=== PATIENT | female | born 1945 | race Caucasian/White ===

== ENCOUNTER 2018-05-08 10:24 | Emergency (ER) | END 2018-05-08 14:20 | disposition home or self-care (01) ==

== ENCOUNTER 2018-05-25 16:22 | Emergency (ER) | END 2018-05-25 19:30 | disposition home or self-care (01) ==

== ENCOUNTER 2018-06-15 22:46 | Inpatient (IN) | END 2018-06-19 11:45 | disposition home or self-care (01) | DRG 310 ==

== ENCOUNTER 2018-07-01 19:55 | Inpatient (IN) | END 2018-07-04 19:27 | disposition home or self-care (01) | DRG 309 ==

== ENCOUNTER 2018-07-05 14:39 | Emergency (ER) | END 2018-07-05 19:36 | disposition home or self-care (01) ==

== ENCOUNTER 2018-08-16 18:52 | Emergency (ER) | END 2018-08-16 22:10 | disposition home or self-care (01) ==

== ENCOUNTER 2018-08-24 21:09 | Emergency (ER) | END 2018-08-24 22:23 | disposition home or self-care (01) ==

== ENCOUNTER 2018-09-11 19:42 | Emergency (ER) | END 2018-09-11 22:00 | disposition home or self-care (01) ==

== ENCOUNTER 2018-09-26 19:55 | Emergency (ER) | payer MEDICARE, OTHER ==
[~2018-09-26] VITALS: Ht 175.3 cm; Wt 88.0 kg
[~2018-09-26 19:55] MED LIST: APIX5TAB PO; BENZ-6 PO; DILT120C77 PO; FLEC100T PO; TRAM50TA2 PO
[2018-09-26 19:57] VITALS: Ht 175.3 cm; Wt 88.0 kg
[2018-09-26] MEDS ORDERED: IPRATROPIUM (NEB) 0.5 MG/2.5 ML AMP HHN ONE (20:30)
[2018-09-26] MEDS ORDERED: LEVALBUTEROL (NEB) 1.25 MG/0.5 ML AMP HHN ONE (20:30)
[2018-09-26] MEDS ORDERED: BENZ-6 PO (22:08)
[2018-09-26] MEDS ORDERED: DOXY100T20 PO (22:08)
[2018-09-26] MEDS ORDERED: PROM6.2515 PO (22:08)
[2018-09-26 22:25] VITALS: BP 165/79; PULSE 75; RESP 20
--- NOTE | 2018-09-26 23:38 | ERD ---
ER Documentation Chief Complaint Chief Complaint cough/congestion/runny nose x 1 day. mild wheezing noted (JONAH DAVIS PA-C) HPI 9-year-old female presenting with cough and congestion with runny nose times 1 day. She is never had asthma before. She feels that she has a wheezy type cough. She has had no fevers. Has a mild sore throat. Has had no medication for symptoms. She states she has a coughing fit an hour ago. Denies medical problems. Denies chest pain or shortness of breath. Medical history is A. fib. Surgical history denies. Social history denies (JONAH DAVIS PA-C) ROS All systems reviewed and are negative except as per history of present illness. (JONAH DAVIS PA-C) Medications Home Meds Active Scripts Benzonatate* (Tessalon Perle*) 100 Mg Capsule, 100 MG PO Q8H PRN for COUGH, #30 CAP Prov:JONAH DAVIS PA-C 09/26/18 Doxycycline Hyclate* (Doxycycline Hyclate*) 100 Mg Tablet.dr, 100 MG PO BID for 10 Days, TAB Prov:JONAH DAVIS PA-C 09/26/18 Promethazine Hcl* (Promethazine Hcl* Syrup) 6.25 Mg/5 Ml Syrup, 6.25 MG PO Q6H PRN for COUGH, #100 ML Prov:JONAH DAVIS PA-C 09/26/18 Tramadol HCl (Tramadol HCl) 50 Mg Tablet, 50 MG PO Q4 PRN for PAIN, #20 TAB Prov:JONAH DAVIS PA-C 08/24/18 Benzonatate* (Tessalon Perle*) 100 Mg Capsule, 100 MG PO Q8H PRN for COUGH, #30 CAP Prov:ELZBIETA OLIVAS MD 08/16/18 Flecainide Acetate* (Flecainide Acetate*) 100 Mg Tablet, 150 MG PO BID for 14 Days, #30 TAB Prov:NAV POWELL MD 07/04/18 Diltiazem Hcl* (Cardizem CD*) 120 Mg Cap.sr.24h, 120 MG PO BID for 14 Days, #30 Prov:NAV POWELL MD 07/04/18 Apixaban* (Eliquis*) 5 Mg Tablet, 5 MG PO BID for 30 Days, #30 TAB 1 Refill Prov:NAV POWELL MD 07/04/18 Allergies Allergies: Coded Allergies: acetaminophen (Verified Adverse Reaction, Severe, severe headache, dizziness, 07/05/18) metoprolol (Verified Adverse Reaction, Severe, tingling, dizziness, confusion, 07/05/18) atenolol (Verified Adverse Reaction, Intermediate, headache, dizziness, 07/05/18) PMhx/Soc History of Surgery: Yes (Hysterectomy) Anesthesia Reaction: No Hx Neurological Disorder: No Hx Respiratory Disorders: No Hx Cardiac Disorders: Yes (AFib) Hx Psychiatric Problems: Yes (Clinical Depression) Hx Miscellaneous Medical Probl: No Hx Alcohol Use: No Hx Substance Use: No Hx Tobacco Use: Yes Smoking Status: Current every day smoker (JONAH DAVIS PA-C) FmHx Family History: No diabetes, No coronary disease, No other (JONAH DAVIS PA-C) Physical Exam Vitals Vital Signs Date Temp Pulse Resp B/P (MAP) Pulse Ox O2 O2 Flow FiO2 Time Delivery Rate 09/26/18 98.0 75 20 165/79 95 Room Air 22:25 (107) 09/26/18 82 18 92 21 20:35 09/26/18 97.5 92 18 135/65 93 19:57 (88) (KEZIA ORELLANA DO) Physical Exam GENERAL: The patient is well-appearing, well-nourished, in no acute distress HEENT: Atraumatic. Conjunctivae are pink. Pupils equal, round, and reactive to light. There is no scleral icterus. Tympanic membranes clear bilaterally. Oropharynx clear. NECK: C-spine is soft and supple. There is no meningismus. There is no cervical lymphadenopathy. CHEST: Clear to auscultation bilaterally. There are no rales, wheezes or rhonchi. HEART: Regular rate and rhythm. No murmurs, clicks, rubs or gallops. No S3 or S4. (JONAH DAVIS PA-C) Results 24 hrs Current Medications Medications Dose Sig/Wilma Start Time Status Last (Trade) Ordered Route PRN Stop Time Admin Dose Reason Admin Ipratropium 0.5 mg ONCE ONCE 09/26/18 DC 09/26/18 [place] [facility] 20:30 20:34 (Atrovent 09/26/18 0.02% 20:32 (Neb)) 1.25 mg ONCE ONCE 09/26/18 DC 09/26/18 Levalbuterol HHN 20:30 20:34 (Xopenex 09/26/18 Neb) 20:32 (KEZIA ORELLANA DO) Procedures/MDM ER Course: Xopenex and albuterol breathing treatment given ED. Patient was resting comfortably after breathing treatment. MDM: 72-year-old female presenting with cough. Patient's x-ray shows concern for pneumonia and given patient's age and will treat with antibiotics. I have low suspicion for respiratory distress or hypoxia. I have low suspicion for sepsis. Patient is discharged stricter precautions and told to follow-up with primary care within 1-2 days for close evaluation. Patient is told if symptoms change or worsen to immediately return to the ER. All questions answered discharge (JONAH DAVIS PA-C) age correction at HPI: 72 year old female (KEZIA ORELLANA DO) Departure Diagnosis: Primary Impression: Cough Condition: Stable Patient Instructions: Cough, Chronic, Uncertain Cause, (Adult) Referrals: [facility] YOU HAVE RECEIVED A MEDICAL SCREENING EXAM AND THE RESULTS INDICATE THAT YOU DO NOT HAVE A CONDITION THAT REQUIRES URGENT TREATMENT IN THE EMERGENCY DEPARTMENT. FURTHER EVALUATION AND TREATMENT OF YOUR CONDITION CAN WAIT UNTIL YOU ARE SEEN IN YOUR DOCTORS OFFICE WITHIN THE NEXT 1-2 DAYS. IT IS YOUR RESPONSIBILITY TO MAKE AN APPOINTMENT FOR FOLOW-UP CARE. IF YOU HAVE A PRIMARY DOCTOR --you should call your primary doctor and schedule an appointment IF YOU DO NOT HAVE A PRIMARY DOCTOR YOU CAN CALL OUR PHYSICIAN REFERRAL HOTLINE AT IF YOU CAN NOT AFFORD TO SEE A PHYSICIAN YOU CAN CHOSE FROM THE FOLLOWING [facility] [address]. [facility] [address] [facility] [address] [facility] [address] [facility]. [facility] [address] [facility]. [facility] [address] Additional Instructions: FOLLOW UP WITH YOUR PRIMARY CARE PHYSICIAN TOMORROW.Return to this facility if you are not improving as expected. JONAH DAVIS PA-C Sep 26, 2018 23:38 KEZIA ORELLANA DO Sep 29, 2018 16:06
== END 2018-09-26 22:26 | disposition home or self-care (01) ==
LOC: FTE 19:55
DX: R05 Cough (principal); F17.210 Nicotine dependence, cigarettes, uncomplicated
CPT/HCPCS: 71045; 94664

== ENCOUNTER 2018-09-27 13:56 | Emergency (ER) | payer MEDICARE, OTHER ==
[~2018-09-27] VITALS: Ht 165.1 cm; Wt 85.9 kg
[~2018-09-27 13:56] MED LIST changes: +DOXY100T20 PO; +PROM6.2515 PO
[2018-09-27 14:04] VITALS: Ht 165.1 cm; Wt 85.9 kg
[2018-09-27] MEDS ORDERED: SOD CHLORIDE 0.9% 1,000 ML IV STA (14:47)
--- NOTE | 2018-09-27 14:49 | ERD ---
ER Documentation Chief Complaint Chief Complaint dizziness s/p phenergan use; feels palpitations; denies CP HPI 72-year-old woman complains of feeling weak and dizzy after using promethazine last night for cough. She was diagnosed with early pneumonia yesterday and prescribed antibiotics which she states she has been using. She states her cough has improved and she has no complaints of chest pain or shortness of breath but after using promethazine felt very weak and dizzy. She denies calf or leg swelling, no fevers or chills, no vomiting or diarrhea. Patient also has a history of atrial fibrillation and felt palpitations this morning. ROS All systems reviewed and are negative except as per history of present illness. Medications Home Meds Active Scripts Benzonatate* (Tessalon Perle*) 100 Mg Capsule, 100 MG PO Q8H PRN for COUGH, #30 CAP Prov:JONAH DAVIS PA-C 09/26/18 Doxycycline Hyclate* (Doxycycline Hyclate*) 100 Mg Tablet.dr, 100 MG PO BID for 10 Days, TAB Prov:JONAH DAVIS PA-C 09/26/18 Promethazine Hcl* (Promethazine Hcl* Syrup) 6.25 Mg/5 Ml Syrup, 6.25 MG PO Q6H PRN for COUGH, #100 ML Prov:JONAH DAVIS PA-C 09/26/18 Tramadol HCl (Tramadol HCl) 50 Mg Tablet, 50 MG PO Q4 PRN for PAIN, #20 TAB Prov:JONAH DAVIS PA-C 08/24/18 Benzonatate* (Tessalon Perle*) 100 Mg Capsule, 100 MG PO Q8H PRN for COUGH, #30 CAP Prov:ELZBIETA OLIVAS MD 08/16/18 Flecainide Acetate* (Flecainide Acetate*) 100 Mg Tablet, 150 MG PO BID for 14 Days, #30 TAB Prov:NAV POWELL MD 07/04/18 Diltiazem Hcl* (Cardizem CD*) 120 Mg Cap.sr.24h, 120 MG PO BID for 14 Days, #30 Prov:NAV POWELL MD 07/04/18 Apixaban* (Eliquis*) 5 Mg Tablet, 5 MG PO BID for 30 Days, #30 TAB 1 Refill Prov:NAV POWELL MD 07/04/18 Allergies Allergies: Coded Allergies: acetaminophen (Verified Adverse Reaction, Severe, severe headache, dizziness, 07/05/18) metoprolol (Verified Adverse Reaction, Severe, tingling, dizziness, confusion, 07/05/18) atenolol (Verified Adverse Reaction, Intermediate, headache, dizziness, 07/05/18) PMhx/Soc Hypertension, paroxysmal atrial fibrillation History of Surgery: Yes (Hysterectomy) Anesthesia Reaction: No Hx Neurological Disorder: No Hx Respiratory Disorders: No Hx Cardiac Disorders: Yes (AFib) Hx Psychiatric Problems: Yes (Clinical Depression) Hx Miscellaneous Medical Probl: No Hx Alcohol Use: No Hx Substance Use: No Hx Tobacco Use: Yes FmHx Family History: No diabetes Physical Exam Vitals Vital Signs Date Temp Pulse Resp B/P (MAP) Pulse Ox O2 O2 Flow FiO2 Time Delivery Rate 09/27/18 114 20 131/81 98 Room Air 15:35 (98) 09/27/18 97.6 115 20 145/94 100 14:04 (111) Physical Exam GENERAL: Well-developed, well-nourished, appears dehydrated, afebrile HEENT: Dry mucous membranes, pink conjunctiva, no cervical spine tenderness or step-off deformities, no goiter, no jaundice or icterus, extraocular movements intact without pain. NEURO: Alert and oriented 3, cranial nerves II through XII intact bilaterally, pupils equal round reactive to light, no focal deficits or facial asymmetry, sensation intact distally Strength 5/5 in upper and lower extremities bilaterally CARDIAC: Tachycardic and regular, no murmurs rubs or gallops LUNGS: Clear bilaterally no wheezing crackles or stridor ABDOMEN: Soft nontender, no guarding, no rigidity, no rebound, no psoas sign no obturator sign. SKIN: Warm and dry to touch, no abrasions, contusions, or hematomas, no lacerations, no ecchymosis, no target lesions, and without ulcers EXTREMITIES: No clubbing cyanosis or edema, calves are bilaterally symmetrical, no Homans sign, no popliteal cord sign. Distal pulses equal and bilateral PSYCH: Normal affect without agitation or irritability Result Diagram: 09/27/18 1552 09/27/18 1552 Results 24 hrs Laboratory Tests Test 09/27/18 15:52 White Blood Count 8.5 10^3/ul Red Blood Count 5.35 10^6/ul Hemoglobin 15.5 g/dl Hematocrit 47.0 % Mean Corpuscular Volume 87.9 fl Mean Corpuscular Hemoglobin 29.0 pg Mean Corpuscular Hemoglobin Concent 33.0 g/dl Red Cell Distribution Width 13.0 % Platelet Count 335 10^3/UL Mean Platelet Volume 10.2 fl Immature Granulocytes % 0.200 % Neutrophils % 69.7 % Lymphocytes % 22.0 % Monocytes % 6.6 % Eosinophils % 0.9 % Basophils % 0.6 % Nucleated Red Blood Cells % 0.0 /100WBC Immature Granulocytes # 0.020 10^3/ul Neutrophils # 5.9 10^3/ul Lymphocytes # 1.9 10^3/ul Monocytes # 0.6 10^3/ul Eosinophils # 0.1 10^3/ul Basophils # 0.1 10^3/ul Nucleated Red Blood Cells # 0.0 10^3/ul Sodium Level 143 mmol/L Potassium Level 3.8 mmol/L Chloride Level 110 mmol/L Carbon Dioxide Level 25 mmol/L Anion Gap 8 Blood Urea Nitrogen 16 mg/dl Creatinine 0.63 mg/dl Est Glomerular Filtrat Rate mL/min > 60 mL/min Glucose Level 109 mg/dl Calcium Level 10.5 mg/dl Total Bilirubin 0.1 mg/dl Direct Bilirubin 0.00 mg/dl Indirect Bilirubin 0.1 mg/dl Aspartate Amino Transf (AST/SGOT) 21 IU/L Alanine Aminotransferase (ALT/SGPT) 25 IU/L Alkaline Phosphatase 100 IU/L Troponin I < 0.012 ng/ml Total Protein 6.4 g/dl Albumin 3.6 g/dl Globulin 2.80 g/dl Albumin/Globulin Ratio 1.28 Lipase 25 U/L Current Medications Medications Dose Sig/Wilma Start Time Status Last (Trade) Ordered Route PRN Stop Time Admin Dose Reason Admin Magnesium 100 ml @ ONCE ONCE 09/27/18 DC 09/27/18 Sulfate/ 100 mls/hr IVPB 15:00 15:33 Dextrose 09/27/18 15:59 Sodium 1,000 ml @ Q1H STAT 09/27/18 DC 09/27/18 Chloride 1,000 mls/hr IV 14:47 15:33 09/27/18 15:46 Procedures/MDM IV line was established patient was placed on athletic monitor rhythm strip revealed a narrow complex tachycardia at 130 bpm with upright P and T waves. Patient was afebrile EKG performed, read by me revealed an atrial fibrillation with rapid ventricular rate at 128 bpm, normal axis, narrow QRS complex, prolonged QT of 511 ms, no concerning ST elevations or depressions noted I administered 1 L normal saline IV for dehydration and magnesium 1 g IV x1. CBC was normal, electrolytes revealed dehydration with a BUN/creatinine of 16/0.6, liver function tests normal, troponin negative Patient's tachycardia resolved and she was rehydrated. She is tolerating p.o. and has no complaints of shortness of breath or chest pain. Her dizziness and weakness has improved. I suspect she had an adverse reaction due to promethazine which is known to cause dizziness, drowsiness, sedation. Her pulse is 84 bpm and regular at this time I suspect it is in normal sinus rhythm, but more importantly her tachycardia has resolved and she has been rehydrated. 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 As well as abscess, cellulitis, fractures, and dislocations. Patient feels much better at this time, and vital signs are normal, symptoms h ave improved. I did give strict instructions to return to the ED if symptoms continue or worsen, patient will otherwise follow-up with primary care physician. Patient understood instructions and agreed to plan. Disclaimer: Inadvertent spelling and grammatical errors are likely due to EHR/dictation software use and do not reflect on the overall quality of patient care. Also, please note that the electronic time recorded on this note does not necessarily reflect the actual time of the patient encounter. Departure Diagnosis: Primary Impression: Dehydration Additional Impressions: Promethazine adverse reaction Encounter type: initial encounter Qualified Codes: T43.3X5A - Adverse effect of phenothiazine antipsychotics and neuroleptics, initial encounter Paroxysmal atrial fibrillation Condition: Good ИРИНА GUNDERSON MD Sep 27, 2018 14:49
[2018-09-27] MEDS ORDERED: MAGNESIUM SULFATE 1 GM/D5W 100 ML IVPB ONE (15:00)
[2018-09-27 18:33] VITALS: BP 122/84; PULSE 79; RESP 18
== END 2018-09-27 18:34 | disposition home or self-care (01) ==
LOC: E/R 13:56
DX: E86.0 Dehydration (principal); T43.3X5A Adverse effect of phenothiazine antipsychotics and neuroleptics, initial encounter; I48.0 Paroxysmal atrial fibrillation; I10 Essential (primary) hypertension; Z87.891 Personal history of nicotine dependence
CPT/HCPCS: 36415; 80053; 83690; 84484; 85025; 93005; 96374; 99284; J3475; J7030

== ENCOUNTER 2018-09-29 15:07 | Emergency (ER) | payer MEDICARE, OTHER ==
[~2018-09-29] VITALS: Ht 170.2 cm; Wt 89.0 kg
[2018-09-29 15:15] VITALS: Ht 170.2 cm; Wt 89.0 kg
--- NOTE | 2018-09-29 15:38 | ERD ---
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 fib presenting with complaints of palpitations and mid chest pressure today. She has been here several times this past week for similar symptoms. Patient recently started promethazine for her cough and doxycycline for recently diagnosed pneumonia. She feels her symptoms got worse after started promethazine but she has not taken this medication today. She denies any associated shortness of breath or dizziness. She just feels generally unwell which is normally what happens when she is in A. fib. She is taking her flecainide and diltiazem as prescribed. She is also on a blood thinner. She is trying to stay well-hydrated. She denies any recent fevers or chills. No other recent illnesses. ROS All systems reviewed and are negative except as per history of present illness. Medications Home Meds Reported Medications Diltiazem Hcl* (Cardizem CD*) 120 Mg Cap.sr.24h, 120 MG PO BID, #30 CAP 09/29/18 Flecainide Acetate* (Flecainide Acetate*) 50 Mg Tablet, 150 MG PO BID, TAB 09/29/18 Apixaban* (Eliquis*) 5 Mg Tablet, 5 MG PO BID, TAB 09/29/18 Discontinued Scripts Benzonatate* (Tessalon Perle*) 100 Mg Capsule, 100 MG PO Q8H PRN for COUGH, #30 CAP Prov:JONAH DAVIS PA-C 09/26/18 Doxycycline Hyclate* (Doxycycline Hyclate*) 100 Mg Tablet.dr, 100 MG PO BID for 10 Days, TAB Prov:JONAH DAVIS PA-C 09/26/18 Promethazine Hcl* (Promethazine Hcl* Syrup) 6.25 Mg/5 Ml Syrup, 6.25 MG PO Q6H PRN for COUGH, #100 ML Prov:JONAH DAVIS PA-C 09/26/18 Tramadol HCl (Tramadol HCl) 50 Mg Tablet, 50 MG PO Q4 PRN for PAIN, #20 TAB Prov:JONAH DAVIS PA-C 08/24/18 Benzonatate* (Tessalon Perle*) 100 Mg Capsule, 100 MG PO Q8H PRN for COUGH, #30 CAP Prov:ELZBIETA OLIVAS MD 08/16/18 Flecainide Acetate* (Flecainide Acetate*) 100 Mg Tablet, 150 MG PO BID for 14 Days, #30 TAB Prov:NAV POWELL MD 07/04/18 Diltiazem Hcl* (Cardizem CD*) 120 Mg Cap.sr.24h, 120 MG PO BID for 14 Days, #30 Prov:NAV POWELL MD 07/04/18 Apixaban* (Eliquis*) 5 Mg Tablet, 5 MG PO BID for 30 Days, #30 TAB 1 Refill Prov:NAV POWELL MD 07/04/18 Allergies Allergies: Coded Allergies: promethazine (Unverified Allergy, Unknown, 09/29/18) acetaminophen (Verified Adverse Reaction, Severe, severe headache, dizziness, 09/29/18) metoprolol (Verified Adverse Reaction, Severe, tingling, dizziness, confusion, 09/29/18) atenolol (Verified Adverse Reaction, Intermediate, headache, dizziness, 09/29/18) PMhx/Soc History of Surgery: Yes (Hysterectomy) Anesthesia Reaction: No Hx Neurological Disorder: No Hx Respiratory Disorders: No Hx Cardiac Disorders: Yes (AFib) Hx Psychiatric Problems: Yes (Clinical Depression) Hx Miscellaneous Medical Probl: Yes (Parathyroid adenoma, hypercalcemia) Hx Alcohol Use: No Hx Substance Use: No Hx Tobacco Use: Yes FmHx Family History: No diabetes Physical Exam Vitals Vital Signs Date Temp Pulse Resp B/P (MAP) Pulse Ox O2 O2 Flow FiO2 Time Delivery Rate 09/29/18 102 23 129/89 95 Room Air 18:35 (102) 09/29/18 98.2 113 20 130/89 95 15:15 (103) Physical Exam Const: No acute distress Head: Atraumatic Eyes: Normal Conjunctiva ENT: Normal External Ears, Nose and Mouth. Neck: Full range of motion. No meningismus. Resp: Clear to auscultation bilaterally Cardio: Irregularly irregular rhythm with tachycardia, no murmurs. 2+ distal pulses Abd: Soft, non tender, non distended. Normal bowel sounds Skin: No petechiae or rashes Back: No midline or flank tenderness Ext: No cyanosis, or edema Neur: Awake and alert, no facial asymmetry, normal speech, moving all extremities Psych: Somewhat anxious, normal Mood and Affect Result Diagram: 09/29/18 1604 09/29/18 1604 Results 24 hrs Laboratory Tests Test 09/29/18 16:04 White Blood Count 9.4 10^3/ul Red Blood Count 5.10 10^6/ul Hemoglobin 15.1 g/dl Hematocrit 45.7 % Mean Corpuscular Volume 89.6 fl Mean Corpuscular Hemoglobin 29.6 pg Mean Corpuscular Hemoglobin Concent 33.0 g/dl Red Cell Distribution Width 12.7 % Platelet Count 343 10^3/UL Mean Platelet Volume 9.9 fl Immature Granulocytes % 0.300 % Neutrophils % 73.0 % Lymphocytes % 20.4 % Monocytes % 4.4 % Eosinophils % 1.4 % Basophils % 0.5 % Nucleated Red Blood Cells % 0.0 /100WBC Immature Granulocytes # 0.030 10^3/ul Neutrophils # 6.9 10^3/ul Lymphocytes # 1.9 10^3/ul Monocytes # 0.4 10^3/ul Eosinophils # 0.1 10^3/ul Basophils # 0.1 10^3/ul Nucleated Red Blood Cells # 0.0 10^3/ul Sodium Level 143 mmol/L Potassium Level 3.9 mmol/L Chloride Level 108 mmol/L Carbon Dioxide Level 28 mmol/L Anion Gap 7 Blood Urea Nitrogen 18 mg/dl Creatinine 0.73 mg/dl Est Glomerular Filtrat Rate mL/min > 60 mL/min Glucose Level 143 mg/dl Calcium Level 10.9 mg/dl Troponin I < 0.012 ng/ml Current Medications Medications Dose Sig/Wilma Start Time Status Last (Trade) Ordered Route PRN Stop Time Admin Dose Reason Admin Diltiazem 30 mg ONCE ONCE 09/29/18 DC 09/29/18 HCl PO 17:00 09/29/18 17:03 (Cardizem) 17:01 Diltiazem 15 mg ONCE ONCE 09/29/18 DC 09/29/18 HCl IV 18:00 09/29/18 18:42 (Cardizem Iv) 18:01 Sodium 500 ml @ Q1H STAT 09/29/18 DC 09/29/18 Chloride 500 mls/hr IV 17:41 09/29/18 18:43 18:40 Procedures/MDM EMERGENT LABS AND DIAGNOSTIC STUDIES: Lab Results above were reviewed and interpreted by me. CBC: no anemia or evidence of infection BMP shows no evidence of renal failure or hypoglycemia. Elevated calcium level noted, slightly elevated compared to previous Troponin within normal limits, not indicative of cardiac ischemia 12-lead EKG was interpreted by Silvestre Stein MD: Atrial fibrillation with RVR at 113 bpm No QT prolongation Minimal lateral ST depressions No acute ST or T wave changes suggestive of STEMI. Radiology Results as interpreted by Radiology below were reviewed by Francine Stein MD: Chest x-ray: 1. Slightly improved aeration at the lung bases with remaining mild atelectasis versus infiltrates. Initial Nursing notes reviewed. Previous Medical Records requested via the Electronic Health Record. EMERGENCY DEPARTMENT COURSE / MEDICAL DECISION MAKING: Patient is presenting with A. fib with RVR. Otherwise her vitals are stable. She was treated with IV fluids and oral diltiazem as well as IV diltiazem. I do not suspect ACS or pulmonary embolism. I do not suspect severe sepsis or septic shock. Her pneumonia seems to be improving on her chest x-ray there are no signs of acute heart failure. After treatment, the patient's heart rate improved. I recommended follow-up with her primary care doctor regarding her hypercalcemia. 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 She has had multiple visits to the ER for similar symptoms. I checked and there is no interaction between flecainide and doxycycline. I do not think this is medication related. Patient feels comfortable with this discharge plan. Patient's blood pressure was elevated (>120/80) but appears stable without evidence of hypertensive emergency or urgency. The patient was counseled about the risks of hypertension and urged to pursue outpatient monitoring and therapy within a week with their primary care physician. Critical Care Time: 40 minutes Treatments/Evaluations: Close monitoring and treatment of unstable vital signs, cardiorespiratory, and neurologic status, while maintaining tight balance of fluid, respiratory, and cardiac interventions. This time includes discussing the case with the patient and the patients family. This time does not include all procedures stated elsewhere in this record. This time also includes reviewing old records, labs and radiological studies. This time includes examining and re- examining the patient. Additionally, this time also includes arranging care with admitting and consulting physicians. Departure Diagnosis: Primary Impression: Atrial fibrillation with rapid ventricular response Additional Impression: Hypercalcemia Condition: Stable EKJESSICA MAYORGA MD Sep 29, 2018 15:38
[2018-09-29] MEDS ORDERED: APIX5TAB PO (16:31)
[2018-09-29] MEDS ORDERED: FLEC50TA PO (16:32)
[2018-09-29] MEDS ORDERED: DILT120C77 PO (16:33)
[2018-09-29] MEDS ORDERED: DILTIAZEM 30 MG TAB PO ONE (17:00)
[2018-09-29] MEDS ORDERED: SOD CHLORIDE 0.9% 500 ML IV STA (17:41)
[2018-09-29] MEDS ORDERED: DILTIAZEM 25 MG INJ IV ONE (18:00)
[2018-09-29 19:41] VITALS: BP 120/72; PULSE 85; RESP 19
== END 2018-09-29 19:58 | disposition home or self-care (01) ==
LOC: E/R 15:07
DX: I48.91 Unspecified atrial fibrillation (principal); E83.52 Hypercalcemia; Z79.01 Long term (current) use of anticoagulants; Z87.891 Personal history of nicotine dependence
CPT/HCPCS: 36415; 71045; 80048; 84484; 85025; 93005; 96374; 99291; J7040

== ENCOUNTER 2018-11-11 07:15 | Inpatient (IN) | payer MEDICARE, OTHER ==
[~2018-11-11] VITALS: Ht 172.7 cm; Wt 85.0 kg
[2018-11-11] VITALS (7 sets, daily range): BP systolic 105–109; BP diastolic 60–74; PULSE 66–111; RESP 18–19; Ht 172.7 cm; Wt 85.0 kg
[~2018-11-11 07:15] MED LIST changes: -BENZ-6 PO; -DOXY100T20 PO; -FLEC100T PO; +FLEC50TA PO; -PROM6.2515 PO; -TRAM50TA2 PO
[2018-11-11] MEDS ORDERED: ASPIRIN 325 MG TAB PO STA (07:23)
[2018-11-11] MEDS ORDERED: NITROGLYCERIN (SL) 0.4 MG TAB SL PRN ×2 (07:30→12:00)
[2018-11-11] MEDS ORDERED: DILTIAZEM 25 MG INJ IV STA (07:31)
--- NOTE | 2018-11-11 07:56 | ERD ---
ER Documentation Chief Complaint Chief Complaint pressure like chest pain non radiating ; dizziness started 6 am today HPI This is a 73-year-old female with a known history of atrial fibrillation. She states is paroxysmal and is on Eliquis. She states that at 6 AM this morning hour prior to arrival she developed a sudden onset of palpitations dizziness and a mild pressure-like sensation in her chest. She stated the pressure-like sensation lasted for roughly 20 minutes and did not radiate to the neck arm back or jaw. She stated this resolved. However the palpitations persisted. Therefore she came to the emergency department to be further evaluated. She denies a headache or changes in vision. She has no recent travel or prolonged immobilization denies any shortness of breath at rest or exertion. She states she does have a history of tobacco use but recently quit 4 months prior to arrival. She states over the past several days she has had a productive cough with whitish sputum. ROS All systems reviewed and are negative except as per history of present illness. Medications Home Meds Reported Medications Diltiazem Hcl* (Cardizem CD*) 120 Mg Cap.sr.24h, 120 MG PO BID, #30 CAP 09/29/18 Flecainide Acetate* (Flecainide Acetate*) 50 Mg Tablet, 150 MG PO BID, TAB 09/29/18 Apixaban* (Eliquis*) 5 Mg Tablet, 5 MG PO BID, TAB 09/29/18 Allergies Allergies: Coded Allergies: promethazine (Unverified Allergy, Unknown, 09/29/18) acetaminophen (Verified Adverse Reaction, Severe, severe headache, dizziness, 09/29/18) metoprolol (Verified Adverse Reaction, Severe, tingling, dizziness, confusion, 09/29/18) atenolol (Verified Adverse Reaction, Intermediate, headache, dizziness, 09/29/18) PMhx/Soc History of Surgery: Yes (Hysterectomy) Anesthesia Reaction: No Hx Neurological Disorder: No Hx Respiratory Disorders: No Hx Cardiac Disorders: Yes (AFib) Hx Psychiatric Problems: Yes (Clinical Depression) Hx Miscellaneous Medical Probl: Yes (Parathyroid adenoma, hypercalcemia) Hx Alcohol Use: No Hx Substance Use: No Hx Tobacco Use: Yes (QUIT 2 MONTHS AGO) Smoking Status: Former smoker Physical Exam Vitals Vital Signs Date Temp Pulse Resp B/P (MAP) Pulse Ox O2 O2 Flow FiO2 Time Delivery Rate 11/11/18 97.7 65 24 182/113 95 07:16 (136) Physical Exam Constitutional:Well-developed. Well-nourished. HEENT:Normocephalic. Atraumatic.Pupils were equal round reactive to light. Moist mucous membranes.No tonsillar exudates. Neck: No nuchal rigidity. No lymphadenopathy. No posterior cervical spine tenderness or step-offs. Respiratory: Not using accessory muscles of respiration.Lungs were clear to auscultation bilaterally. No rhonchi. No rales. Bilateral wheezing. Cardiovascular: Tachycardic with irregular regular rhythm.No murmurs. No rubs were appreciated.S1, S2 normal. Distal pulses are palpable 2+ bilaterally. GI: Abdomen was soft. Nontender. Non Distended. No pulsatile abdominal masses or bruits. No rebound. No guarding. Bowel sounds were present and normal. Muscle skeletal: Full range of motion of both the upper and lower extremities bilaterally.Normal muscle tone.No assymetrical calf tenderness or swelling. Skin: No petechia, no purpura. No lesions on the palms or the soles of the feet. No maculopapular rash. NEURO: Patient was alert, awake, orientated x3.No facial droop. Gait observed and normal with no ataxia.Speech had regular rate and rhythm. No focal neurological deficits. Results 24 hrs Current Medications Medications Dose Sig/Wilma Start Time Status Last (Trade) Ordered Route PRN Stop Time Admin Dose Reason Admin Aspirin 325 mg ONCE STAT 11/11/18 DC (Aspirin) PO 07:23 11/11/18 07:25 1 tab Q5M UP TO 3 11/11/18 Nitroglycerin DOSES PRN 07:30 SL .CHEST (Nitroglyceri PAIN n (Sl Tab) 0.4 Mg) Diltiazem 20 mg ONCE STAT 11/11/18 DC HCl IV 07:31 (Cardizem Iv) 11/11/18 07:32 Diltiazem 125 ml @ 5 ONCE STAT 11/11/18 HCl mls/hr IV 07:31 11/12/18 08:30 Procedures/MDM This is a 73-year-old female presented to the emergency department tachycardic with atrial fibrillation and RVR. The patient was placed on a laboratory monitor continuous pulse oximetry and IV access was established by nursing staff. The patient was refusing aspirin and nitroglycerin as she stated her chest pain had completely resolved. However I did feel she required admission for serial twelve-lead EKG tracings and cardiac set of enzymes as she did awake with chest pain and pressure. 12 Lead EKG tracing ordered and reviewed by myself showed: irregular regular rhythm with tachycardia 121 bpm and no arrhythmia. DC interval not present as patient appeared to be in atrial fibrillation QRS duration normal. No ST segment elevation No ST segment depression. No changes consistent with acute ischemia. I obtained a 1 view chest radiograph which showed no infiltrates no pneumothorax or pleural effusions. This was obtained due to the patient's productive cough. I did feel this could be result of mild emphysema versus bronchitis. She was given nebulizer treatment and this improved her symptoms. Patient had no severe electrolyte abnormalities. The patient will be admitted to the hospitalist in serious condition. Critical Care: Time: 65 minutes Treatments/Evaluations: Close monitoring and treatment of unstable vital signs, cardiorespiratory, and neurologic status, while maintaining tight balance of fluid, respiratory, and cardiac interventions. Time does not include performing any of the above billable procedures. Departure Diagnosis: Primary Impression: Chest pain Chest pain type: unspecified Qualified Codes: R07.9 - Chest pain, unspecified Additional Impression: Atrial fibrillation with RVR Condition: Serious EMMA AVILES MD Nov 11, 2018 07:56
[2018-11-11] MEDS ORDERED: ACETAMINOPHEN 325 MG TAB PO PRN ×2 (09:30→12:00)
[2018-11-11] MEDS ORDERED: ONDANSETRON 4 MG INJ IV PRN ×2 (09:30→12:00)
[2018-11-11] MEDS: DILTIAZEM-D5W 125MG/125ML DRIP 125 ML IV STA ×2 (09:55→13:05)
[2018-11-11] MEDS ORDERED: SOD CHLORIDE 0.9% 1,000 ML IV STA (10:05)
[2018-11-11] MEDS ORDERED: MAGNESIUM HYDROXIDE 30ML CUP PO PRN (12:00)
[2018-11-11] MEDS ORDERED: ALBUTEROL/IPRATROPIUM (NEB) 3 ML AMP HHN PRN (12:00)
[2018-11-11] MEDS ORDERED: hydrALAzine 20 MG INJ IV PRN (12:00)
[2018-11-11] MEDS ORDERED: NACL 0.9% 3 ML SYG IV SCH (12:00)
[2018-11-11] MEDS ORDERED: HYDROCODONE/APAP (5/325) TAB PO PRN (12:00)
[2018-11-11] MEDS ORDERED: DILTIAZEM-D5W 125MG/125ML DRIP 125 ML IV SCH (12:00)
[2018-11-11] MEDS ORDERED: morphine 2 MG INJ IV PRN (12:00)
[2018-11-11] MEDS ORDERED: LORAZEPAM 2 MG INJ IV PRN (12:00)
[2018-11-11] MEDS ORDERED: DOCUSATE SODIUM 100 MG CAP PO PRN (12:00)
--- NOTE | 2018-11-11 12:36 | HP ---
DATE OF ADMISSION: 11/11/2018 IDENTIFICATION: This is a 73-year-old female. CHIEF COMPLAINT: Chest pressure and mild dizziness. HISTORY OF PRESENT ILLNESS: A 73-year-old female with past medical history of depression, possible p arathyroid adenoma, atrial fibrillation on Eliquis, who comes in with chest pressure symptoms that be kole early this morning around 5:00 to 6:00 a.m. She also had some palpitations and had some mild diz ziness. No apparent loss of consciousness. Symptoms started to resolve except for the palpitations, so the patient decided to come into the ER. Denied any upper or lower GI bleeding. No fevers or ch ills. No diarrhea or constipation. No nausea or vomiting. The patient also complained of some mild cough of whitish sputum. When she came in today, she was found with slightly elevated heart rate of 110, AFib and did receive diltiazem IV bolus, but refused the diltiazem drip and is still refusing t hat now. The patient was last here at our hospital from 07/01/2018 to 07/04/2018; at that time also treated for AFib with RVR. Former smoker, apparently quit 2 months ago. PAST MEDICAL HISTORY: As above. ALLERGIES: 1. TYLENOL. 2. ATENOLOL. 3. METOPROLOL. 4. PROMETHAZINE. PAST SURGICAL HISTORY: Hysterectomy. FAMILY HISTORY: Noncontributory. SOCIAL HISTORY: Former smoker, quit 2 months ago. No IV drug abuse, no drinking history. PHYSICAL EXAMINATION: VITAL SIGNS: T-max 97.7, pulse 110 to 108, respirations 24, blood pressure 182/113, satting at 95%. GENERAL: The patient is sitting on the edge of bed, asking for diet; otherwise, no acute distress. HEENT: Pupils are equal, round, react to light. Extraocular muscles are intact. NECK: Supple. No thyromegaly. CARDIOVASCULAR: Irregularly irregular heart rate, tachycardic. No rubs or gallops. ABDOMEN: Soft, nontender, nondistended. Normal bowel sounds. No rebound or guarding. MUSCULOSKELETAL: No lower extremity edema bilaterally. NEUROLOGIC: No focal deficits. LABORATORIES: CBC is normal. Calcium is a little high at 10.8, but the rest of the comprehensive me tabolic panel was normal. Troponin is negative x1. BNP is a little high at 265. DIAGNOSTIC DATA: The patient had a chest x-ray today that showed no evidence of any CHF or pneumonia . ASSESSMENT AND PLAN: A 73-year-old female coming in with chest palpitations, dizziness and signs of atrial fibrillation with rapid ventricular response. 1. Chest palpitations and dizziness, again symptoms are secondary to likely atrial fibrillation with rapid ventricular response. Also, consider ruling out for acute coronary syndrome. We will admit t he patient and keep her on telemetry monitoring. We will start her on Cardizem drip. Continue her E liquis. Check TSH, A1c, lipid panel. Obtain cardiology consult. Follow up their recommendations. Consider echocardiogram. We will also order PT and OT consults. 2. History of depression. Monitor for now. She will be on Ativan p.r.n. 3. History of possible parathyroid adenoma. Her calcium level is slightly high. Continue to monito r for now. If there are any further abnormalities, consider endocrinology consult. 4. Deep venous thrombosis prophylaxis. She is on Eliquis. Dictated By: MEÑO KAUFFMAN Conf#: [id number] DID#: [id number] CC: KEZIA COPE DO;*EndCC*
[2018-11-11] MEDS: SOD CHLORIDE 0.45% 1,000 ML IV SCH ×2 (13:05→20:10)
--- NOTE | 2018-11-11 15:47 | CONS ---
Assessment/Plan Assessment/Plan Hospital Course (Demo Recall) Paroxysmal atrial fibrillation, currently with rapid ventricular rates Preserved ejection fraction Anxiety -Patient with recurrent atrial fibrillation with rapid ventricular rates. She is on diltiazem at home as well as flecainide. -She is currently refusing any IV medication administration -I will restart flecainide, change Cardizem to short acting and more frequent dosing -Maintain potassium above 4.0 and magnesium above 2.0. Consultation Date/Type/Reason Admit Date/Time Nov 11, 2018 at 09:06 Type of Consult Cardiology Reason for Consultation Atrial fibrillation Date/Time of Note DATE: 11/11/18 TIME: 15:43 Hx of Present Illness This is a 73-year-old female with past medical history of paroxysmal atrial fibrillation who presents with palpitations which began this morning. Patient felt that she was in atrial fibrillation and came to the emergency room. Betsy gonzalez with known history of "issues" with medication administration. She tells me she has been compliant with her Cardizem at home and flecainide and Eliquis. She denies any chest pain, shortness of breath currently but is feeling palpitations. She has been refusing with IV Cardizem drip. She is asking me to make her feel better but is not been agreeable to any IV medication administration. Denies fevers, chills, has been having a mild productive cough for months. 12 point review of systems was performed with all pertinent positives and negatives mentioned above and all else is negative Past Medical History Paroxysmal atrial fibrillation Anxiety Home Meds Reported Medications Diltiazem Hcl* (Cardizem CD*) 120 Mg Cap.sr.24h, 120 MG PO BID, #30 CAP 09/29/18 Flecainide Acetate* (Flecainide Acetate*) 50 Mg Tablet, 150 MG PO BID, TAB 09/29/18 Apixaban* (Eliquis*) 5 Mg Tablet, 5 MG PO BID, TAB 09/29/18 Medications Current Medications Diltiazem HCl 125 ml @ 5 mls/hr ONCE STAT IV ; Start 11/11/18 at 07:31; Stop 11/12/18 at 08:30 Ondansetron HCl (Zofran Inj) 4 mg ER BRIDGE PRN IV NAUSEA/VOMITING; Start 11/11/18 at 09:30; Stop 11/12/18 at 09:29 Acetaminophen (Tylenol Tab) 650 mg ER BRIDGE PRN PO .MILD PAIN 1-3 OR TEMP; Start 11/11/18 at 09:30; Stop 11/12/18 at 09:29 IV Flush (NS 3 ml) 3 ml PER PROTOCOL IV ; Start 11/11/18 at 12:00 Ondansetron HCl (Zofran Inj) 4 mg Q6H PRN IV NAUSEA/VOMITING; Start 11/11/18 at 12:00 Acetaminophen (Tylenol Tab) 650 mg Q6H PRN PO .PAIN 1-3 OR TEMP; Start 11/11/18 at 12:00 Acetaminophen/ Hydrocodone Bitart ([place] (5/325)) 1 tab Q6H PRN PO .MOD PAIN 4- 6; Start 11/11/18 at 12:00 Morphine Sulfate (morphine) 2 mg Q4H PRN IV .SEVERE PAIN 7-10; Start 11/11/18 at 12:00 Docusate Sodium (Colace) 100 mg Q12H PRN PO .CONSTIPATION; Start 11/11/18 at 12:00 Magnesium Hydroxide (Milk Of Mag) 30 ml DAILY PRN PO .CONSTIPATION; Start 11/11/18 at 12:00 Sodium Chloride 1,000 ml @ 75 mls/hr [id number] IV ; Start 11/11/18 at 12:00 Lorazepam (Ativan) 0.5 mg Q6H PRN IV ANXIETY; Start 11/11/18 at 12:00 Albuterol/ Ipratropium (Duoneb) 3 ml Q4H RESP THERAPY PRN HHN SHORTNESS OF BREATH Last administered on 11/11/18at 15:24; Admin Dose 3 ML; Start 11/11/18 at 12:00 Hydralazine HCl (Apresoline) 10 mg Q6H PRN IV ELEVATED BLOOD PRESSURE; Start 11/11/18 at 12:00 Nitroglycerin (Nitroglycerin (Sl Tab) 0.4 Mg) 1 tab Q5M PRN SL ANGINA; Start 11/11/18 at 12:00 Apixaban (Eliquis) 5 mg BID PO ; Start 11/11/18 at 21:00 Diltiazem HCl 125 ml @ 5 mls/hr TITRATE IV ; Start 11/11/18 at 12:00 Allergies: Coded Allergies: promethazine (Unverified Allergy, Unknown, 09/29/18) acetaminophen (Verified Adverse Reaction, Severe, severe headache, dizziness, 09/29/18) metoprolol (Verified Adverse Reaction, Severe, tingling, dizziness, confusion, 09/29/18) atenolol (Verified Adverse Reaction, Intermediate, headache, dizziness, 09/29/18) Past Surgical History Past Surgical Hx: no surgical history Social History Smoking Status: Former smoker Exam/Review of Systems Vital Signs Vitals Vital Signs Date Temp Pulse Resp B/P (MAP) Pulse Ox O2 O2 Flow FiO2 Time Delivery Rate 11/11/18 98.0 85 18 105/65 95 15:38 (78) 11/11/18 21 15:30 11/11/18 Room Air 10:30 Exam Constitutional: alert, oriented (No apparent distress) Head: normocephalic Respiratory: clear to auscultation, normal air movement Cardiovascular: irregular rhythm (S1-S2 heard) Gastrointestinal: soft, non-tender, bowel sounds Extremities: other (No significant edema) Labs Result Diagram: 11/11/18 0819 11/11/18 0818 Results 24hrs Laboratory Tests Test 11/11/18 08:18 11/11/18 08:19 11/11/18 13:48 Prothrombin Time 11.8 L Prothrombin Time Ratio 0.9 INR International Normalized Ratio 0.86 Activated Partial Thromboplast Time 31.5 Sodium Level 141 Potassium Level 4.0 Chloride Level 104 Carbon Dioxide Level 26 Anion Gap 11 Blood Urea Nitrogen 15 Creatinine 0.65 Est Glomerular Filtrat Rate mL/min Glucose Level 131 Calcium Level 10.8 H Total Bilirubin 0.4 Direct Bilirubin 0.00 Indirect Bilirubin 0.4 Aspartate Amino Transf (AST/SGOT) 24 Alanine Aminotransferase (ALT/SGPT) 16 Alkaline Phosphatase 125 H Creatine Kinase 35 Creatine Kinase Index 1.7 Creatinine Kinase MB (Mass) 0.59 Troponin I < 0.012 0.013 B-Type Natriuretic Peptide 265 H Total Protein 8.4 H Albumin 4.6 Globulin 3.80 H Albumin/Globulin Ratio 1.21 Free Thyroxine 1.19 White Blood Count 6.0 # Red Blood Count 6.12 H Hemoglobin 17.7 H Hematocrit 53.7 H Mean Corpuscular Volume 87.7 Mean Corpuscular Hemoglobin 28.9 L Mean Corpuscular Hemoglobin Concent 33.0 Red Cell Distribution Width 13.1 Platelet Count 335 Mean Platelet Volume 9.7 Immature Granulocytes % 0.300 Neutrophils % 68.6 Lymphocytes % 24.4 Monocytes % 4.7 Eosinophils % 1.3 Basophils % 0.7 Nucleated Red Blood Cells % 0.0 Immature Granulocytes # 0.020 Neutrophils # 4.1 Lymphocytes # 1.5 Monocytes # 0.3 Eosinophils # 0.1 Basophils # 0.0 Nucleated Red Blood Cells # 0.0 Imaging Imaging ECG atrial fibrillation at 125 bpm, QRS 88 ms, no significant ischemic ST abnormalities Medications Medications Current Medications Diltiazem HCl 125 ml @ 5 mls/hr ONCE STAT IV ; Start 11/11/18 at 07:31; Stop 11/12/18 at 08:30 Ondansetron HCl (Zofran Inj) 4 mg ER BRIDGE PRN IV NAUSEA/VOMITING; Start 11/11/18 at 09:30; Stop 11/12/18 at 09:29 Acetaminophen (Tylenol Tab) 650 mg ER BRIDGE PRN PO .MILD PAIN 1-3 OR TEMP; Start 11/11/18 at 09:30; Stop 11/12/18 at 09:29 IV Flush (NS 3 ml) 3 ml PER PROTOCOL IV ; Start 11/11/18 at 12:00 Ondansetron HCl (Zofran Inj) 4 mg Q6H PRN IV NAUSEA/VOMITING; Start 11/11/18 at 12:00 Acetaminophen (Tylenol Tab) 650 mg Q6H PRN PO .PAIN 1-3 OR TEMP; Start 11/11/18 at 12:00 Acetaminophen/ Hydrocodone Bitart ([place] (5/325)) 1 tab Q6H PRN PO .MOD PAIN 4- 6; Start 11/11/18 at 12:00 Morphine Sulfate (morphine) 2 mg Q4H PRN IV .SEVERE PAIN 7-10; Start 11/11/18 at 12:00 Docusate Sodium (Colace) 100 mg Q12H PRN PO .CONSTIPATION; Start 11/11/18 at 12:00 Magnesium Hydroxide (Milk Of Mag) 30 ml DAILY PRN PO .CONSTIPATION; Start 11/11/18 at 12:00 Sodium Chloride 1,000 ml @ 75 mls/hr [id number] IV ; Start 11/11/18 at 12:00 Lorazepam (Ativan) 0.5 mg Q6H PRN IV ANXIETY; Start 11/11/18 at 12:00 Albuterol/ Ipratropium (Duoneb) 3 ml Q4H RESP THERAPY PRN HHN SHORTNESS OF BREATH Last administered on 11/11/18at 15:24; Admin Dose 3 ML; Start 11/11/18 at 12:00 Hydralazine HCl (Apresoline) 10 mg Q6H PRN IV ELEVATED BLOOD PRESSURE; Start 11/11/18 at 12:00 Nitroglycerin (Nitroglycerin (Sl Tab) 0.4 Mg) 1 tab Q5M PRN SL ANGINA; Start 11/11/18 at 12:00 Apixaban (Eliquis) 5 mg BID PO ; Start 11/11/18 at 21:00 Diltiazem HCl 125 ml @ 5 mls/hr TITRATE IV ; Start 11/11/18 at 12:00 [place] DO Nov 11, 2018 15:47
[2018-11-11] MEDS: DILTIAZEM 60 MG TAB PO SCH (17:51)
[2018-11-11] MEDS: APIXABAN 5 MG TABLET PO SCH (20:27)
[2018-11-11] MEDS: FLECAINIDE 50 MG TAB PO SCH (20:28)
[2018-11-12] VITALS (12 sets, daily range): BP systolic 120–156; BP diastolic 66–77; PULSE 57–79; RESP 16–22
[2018-11-12] MEDS: SOD CHLORIDE 0.45% 1,000 ML IV SCH ×2 (01:20→14:33)
[2018-11-12] MEDS: DILTIAZEM 60 MG TAB PO SCH ×5 (06:00→23:12)
--- NOTE | 2018-11-12 07:31 | CONS ---
Assessment/Plan Assessment/Plan Assessment/Plan (Daily) Paroxysmal atrial fibrillation,s/p rapid ventricular rates > now in NSR Preserved ejection fraction Anxiety -Patient with recurrent atrial fibrillation with rapid ventricular rates, converted to NSR> She is on diltiazem at home as well as flecainide. -She is currently refusing any IV medication administration -COntinue eliquis -Maintain potassium above 4.0 and magnesium above Consultation Date/Type/Reason Admit Date/Time Nov 11, 2018 at 09:06 Initial Consult Date Type of Consult Cardiology Date/Time of Note DATE: 11/12/18 TIME: 07:29 24 HR Interval Summary Free Text/Dictation The patnet with no cahgne overnight Exam/Review of Systems Vital Signs Vitals Vital Signs Date Temp Pulse Resp B/P (MAP) Pulse Ox O2 O2 Flow FiO2 Time Delivery Rate 11/12/18 98.0 70 20 134/75 94 Room Air 07:06 (94) 11/11/18 21 15:30 Intake and Output 11/11/18 11/11/18 11/12/18 1515:00 23:00 07:00 IntakeIntake Total 2000 ml 725 ml BalanceBalance 2000 ml 725 ml Labs Result Diagram: 11/12/18 0550 11/11/18 0818 Results 24hrs Laboratory Tests Test 11/11/18 08:18 11/11/18 08:19 11/11/18 13:48 11/11/18 20:03 Prothrombin Time 11.8 L Prothrombin Time 0.9 Ratio INR International 0.86 Normalized Ratio Activated 31.5 Partial Thromboplast Time Sodium Level 141 Potassium Level 4.0 Chloride Level 104 Carbon Dioxide Level 26 Anion Gap 11 Blood Urea Nitrogen 15 Creatinine 0.65 Est Glomerular Filtrat Rate mL/min Glucose Level 131 Calcium Level 10.8 H Total Bilirubin 0.4 Direct Bilirubin 0.00 Indirect Bilirubin 0.4 Aspartate Amino 24 Transf (AST/SGOT) Alanine 16 Aminotransferase (AL T/SGPT) Alkaline Phosphatase 125 H Creatine Kinase 35 Creatine Kinase 1.7 Index Creatinine Kinase MB 0.59 (Mass) Troponin I < 0.012 0.013 < 0.012 B-Type Natriuretic 265 H Peptide Total Protein 8.4 H Albumin 4.6 Globulin 3.80 H Albumin/Globulin 1.21 Ratio Free Thyroxine 1.19 White Blood Count 6.0 # Red Blood Count 6.12 H Hemoglobin 17.7 H Hematocrit 53.7 H Mean Corpuscular 87.7 Volume Mean Corpuscular 28.9 L Hemoglobin Mean Corpuscular 33.0 Hemoglobin Concent Red Cell 13.1 Distribution Width Platelet Count 335 Mean Platelet Volume 9.7 Immature 0.300 Granulocytes % Neutrophils % 68.6 Lymphocytes % 24.4 Monocytes % 4.7 Eosinophils % 1.3 Basophils % 0.7 Nucleated Red Blood 0.0 Cells % Immature 0.020 Granulocytes # Neutrophils # 4.1 Lymphocytes # 1.5 Monocytes # 0.3 Eosinophils # 0.1 Basophils # 0.0 Nucleated Red Blood 0.0 Cells # Test 11/12/18 05:50 White Blood Count 6.9 Red Blood Count 5.42 H Hemoglobin 15.6 Hematocrit 48.5 H Mean Corpuscular 89.5 Volume Mean Corpuscular 28.8 L Hemoglobin Mean Corpuscular 32.2 Hemoglobin Concent Red Cell 13.5 Distribution Width Platelet Count 219 # Mean Platelet Volume 11.1 H Immature 0.100 Granulocytes % Neutrophils % 56.7 Lymphocytes % 36.5 Monocytes % 5.1 Eosinophils % 1.2 Basophils % 0.4 Nucleated Red Blood 0.0 Cells % Immature 0.010 Granulocytes # Neutrophils # 3.9 Lymphocytes # 2.5 Monocytes # 0.4 Eosinophils # 0.1 Basophils # 0.0 Nucleated Red Blood 0.0 Cells # Hemoglobin A1c 5.9 Medications Medications Current Medications Ondansetron HCl (Zofran Inj) 4 mg ER BRIDGE PRN IV NAUSEA/VOMITING; Start 11/11/18 at 09:30; Stop 11/12/18 at 09:29 Acetaminophen (Tylenol Tab) 650 mg ER BRIDGE PRN PO .MILD PAIN 1-3 OR TEMP; Start 11/11/18 at 09:30; Stop 11/12/18 at 09:29 IV Flush (NS 3 ml) 3 ml PER PROTOCOL IV ; Start 11/11/18 at 12:00 Ondansetron HCl (Zofran Inj) 4 mg Q6H PRN IV NAUSEA/VOMITING; Start 11/11/18 at 12:00 Acetaminophen (Tylenol Tab) 650 mg Q6H PRN PO .PAIN 1-3 OR TEMP; Start 11/11/18 at 12:00 Acetaminophen/ Hydrocodone Bitart ([place] (5/325)) 1 tab Q6H PRN PO .MOD PAIN 4- 6; Start 11/11/18 at 12:00 Morphine Sulfate (morphine) 2 mg Q4H PRN IV .SEVERE PAIN 7-10; Start 11/11/18 at 12:00 Docusate Sodium (Colace) 100 mg Q12H PRN PO .CONSTIPATION; Start 11/11/18 at 12:00 Magnesium Hydroxide (Milk Of Mag) 30 ml DAILY PRN PO .CONSTIPATION; Start 11/11/18 at 12:00 Sodium Chloride 1,000 ml @ 75 mls/hr [id number] IV Last administered on 11/11/18at 20:10; Admin Dose 75 MLS/HR; Start 11/11/18 at 12:00 Lorazepam (Ativan) 0.5 mg Q6H PRN IV ANXIETY; Start 11/11/18 at 12:00 Albuterol/ Ipratropium (Duoneb) 3 ml Q4H RESP THERAPY PRN HHN SHORTNESS OF BREATH Last administered on 11/11/18at 15:24; Admin Dose 3 ML; Start 11/11/18 at 12:00 Hydralazine HCl (Apresoline) 10 mg Q6H PRN IV ELEVATED BLOOD PRESSURE; Start 11/11/18 at 12:00 Nitroglycerin (Nitroglycerin (Sl Tab) 0.4 Mg) 1 tab Q5M PRN SL ANGINA; Start 11/11/18 at 12:00 Apixaban (Eliquis) 5 mg BID PO Last administered on 11/11/18at 20:27; Admin Dose 5 MG; Start 11/11/18 at 21:00 Diltiazem HCl 125 ml @ 5 mls/hr TITRATE IV ; Start 11/11/18 at 12:00 Diltiazem HCl (Cardizem) 60 mg Q6 PO Last administered on 11/11/18at 17:51; Admin Dose 60 MG; Start 11/11/18 at 18:00 Flecainide Acetate (Tambocor) 150 mg Q12 PO Last administered on 11/11/18at 20:28; Admin Dose 150 MG; Start 11/11/18 at 21:00 KAITLYN LO MD Nov 12, 2018 07:31
[2018-11-12] MEDS: FLECAINIDE 50 MG TAB PO SCH ×2 (08:14→21:16)
[2018-11-12] MEDS: APIXABAN 5 MG TABLET PO SCH ×2 (08:14→21:16)
--- NOTE | 2018-11-12 13:14 | PDOCDIS ---
Discharge Instructions CONDITION [id number] Patient Condition: [id number] Stable ACTIVITY: [id number] Activity Restrictions: [id number] Slowly Increase Activity Rest between Activity Avoid heavy lifting FOLLOW UP/APPOINTMENTS Follow-up Plan Please take your medications as prescribed, see your doctor in the clinic in the next 1 week. MEÑO XIE Nov 12, 2018 13:14
[2018-11-12] MEDS ORDERED: DILT60TA29 PO (13:15)
--- NOTE | 2018-11-12 13:17 | DS ---
Date/Time of Note Date/Time of Note DATE: 11/12/18 TIME: 13:17 Discharge Summary Admission/Discharge Info Admit Date/Time Nov 11, 2018 at 09:06 Discharge Date/Time Discharge Diagnosis 1. Chest palpitations and dizziness, again symptoms are secondary to likely atrial fibrillation with rapid ventricular response -resolved now. 2. History of depression 3. History of possible parathyroid adenoma. 4. History of A. fib- on Eliquis Patient Condition: Stable Hx of Present Illness 73-year-old female with past medical history of depression, possible parathyroid adenoma, atrial fibrillation on Eliquis, who comes in with chest pressure symptoms that began early this morning around 5:00 to 6:00 a.m. She also had some palpitations and had some mild dizziness. No apparent loss of consciousness. Symptoms started to resolve except for the palpitations, so the patient decided to come into the ER. Denied any upper or lower GI bleeding. No fevers or chills. No diarrhea or constipation. No nausea or vomiting. The patient also complained of some mild cough of whitish sputum. When she came in today, she was found with slightly elevated heart rate of 110, AFib and did receive diltiazem IV bolus, but refused the diltiazem drip and is still refusing that now. The patient was last here at our hospital from 07/01/2018 to 07/04/2018; at that time also treated for AFib with RVR. Former smoker, apparently quit 2 months ago. Hospital Course So patient was admitted to telemetry floor. She ruled out for acute coronary syndrome. Her heart rate stabilized although she did refuse the IV Cardizem medication. She did however take the p.o. flecainide and p.o. Cardizem as recommended by cardiology team who ended up seeing the patient has a consult. She did have some mild bradycardia on the night of November 11, 2018 but she was a symptom medic and by the time of discharge her heart rate was rate controlled and actually showed signs of normal sinus rhythm. She was able to ambulate, tolerated p.o. diet. After getting clearance from cardiology team she will be discharged home today improved condition. There are some adjustments in her p.o. medications as far as the dosages and the frequency. See below for full list of discharge medications. Home Meds Active Scripts Diltiazem Hcl* (Cardizem*) 60 Mg Tablet, 60 MG PO Q6, #120 TAB 2 Refills Prov:MEÑO XIE 11/12/18 Reported Medications Flecainide Acetate* (Flecainide Acetate*) 50 Mg Tablet, 150 MG PO BID, TAB 09/29/18 Apixaban* (Eliquis*) 5 Mg Tablet, 5 MG PO BID, TAB 09/29/18 Discontinued Reported Medications Diltiazem Hcl* (Cardizem CD*) 120 Mg Cap.sr.24h, 120 MG PO BID, #30 CAP 09/29/18 Follow-up Plan Please take your medications as prescribed, see your doctor in the clinic in the next 1 week. Primary Care Provider Louise Bear ([facility]) Time spent on discharge: > 30 minutes Pending Labs Laboratory Tests Test 11/11/18 13:48 11/11/18 20:03 11/12/18 05:50 Troponin I 0.013 < 0.012 ng/ml (0.000-0.120) ng/ml (0.000-0.120 ) White Blood Count 6.9 10^3/ul (4.8-10.8) Red Blood Count 5.42 10^6/ul (4.20-5.40 ) Hemoglobin 15.6 g/dl (12.0-16.0) Hematocrit 48.5 % (37.0-47.0) Mean Corpuscular 89.5 Volume fl (82.0-101.0) Mean Corpuscular 28.8 Hemoglobin pg (29.0-33.0) Mean Corpuscular 32.2 Hemoglobin Concent g/dl (32.0-37.0) Red Cell 13.5 % (11.5-14.5) Distribution Width Platelet Count 219 10^3/UL (140-415) Mean Platelet 11.1 fl (7.4-10.4) Volume Immature 0.100 Granulocytes % % (0.001-0.429) Neutrophils % 56.7 % (39.0-77.0) Lymphocytes % 36.5 % (15.0-51.0) Monocytes % 5.1 % (0.0-11.0) Eosinophils % 1.2 % (0.0-7.0) Basophils % 0.4 % (0.0-2.0) Nucleated Red Blood 0.0 Cells % /100WBC (0.0-0.0) Immature 0.010 Granulocytes # 10^3/ul (0.0-0.031 ) Neutrophils # 3.9 10^3/ul (1.6-7.5) Lymphocytes # 2.5 10^3/ul (0.8-2.9) Monocytes # 0.4 10^3/ul (0.3-0.9) Eosinophils # 0.1 10^3/ul (0.0-0.5) Basophils # 0.0 10^3/ul (0.0-0.1) Nucleated Red Blood 0.0 Cells # 10^3/ul (0.0-0.0) Sodium Level 141 mmol/L (135-144) Potassium Level 4.5 mmol/L (3.5-5.1) Chloride Level 108 mmol/L (97-110) Carbon Dioxide 23 mmol/L (21-31) Level Anion Gap 10 (5-13) Blood Urea 14 mg/dl (7-20) Nitrogen Creatinine 0.62 mg/dl (0.44-1.00) Est Glomerular mL/min (>60) Filtrat Rate mL/min Glucose Level 108 mg/dl (70-220) Hemoglobin A1c 5.9 % (0-5.9) Calcium Level 10.7 mg/dl (8.4-10.2) Phosphorus Level 3.7 mg/dl (2.5-4.9) Magnesium Level 2.0 mg/dl (1.7-2.5) Triglycerides 86 mg/dl (0-149) Level Cholesterol Level 208 mg/dl (100-200) LDL Cholesterol, 121 mg/dl Calculated HDL Cholesterol 70 mg/dl (33-92) Cholesterol/HDL 2.9 RATIO Ratio Thyroid Stimulating 2.290 Hormone (TSH) MIU/L (0.465-4.680 ) MEÑO XIE Nov 12, 2018 13:17
[2018-11-13] VITALS (7 sets, daily range): BP systolic 114–142; BP diastolic 63–82; PULSE 56–73; RESP 18–20
--- NOTE | 2018-11-13 10:16 | DS ---
Date/Time of Note Date/Time of Note DATE: 11/13/18 TIME: 10:15 Discharge Summary Admission/Discharge Info Admit Date/Time Nov 11, 2018 at 09:06 Discharge Date/Time Discharge Diagnosis 1. Chest palpitations and dizziness, again symptoms are secondary to likely atrial fibrillation with rapid ventricular response -resolved now. 2. History of depression 3. History of possible parathyroid adenoma. 4. History of A. fib- on Eliquis Patient Condition: Stable Hx of Present Illness 73-year-old female with past medical history of depression, possible parathyroid adenoma, atrial fibrillation on Eliquis, who comes in with chest pressure symptoms that began early this morning around 5:00 to 6:00 a.m. She also had some palpitations and had some mild dizziness. No apparent loss of consciousness. Symptoms started to resolve except for the palpitations, so the patient decided to come into the ER. Denied any upper or lower GI bleeding. No fevers or chills. No diarrhea or constipation. No nausea or vomiting. The patient also complained of some mild cough of whitish sputum. When she came in today, she was found with slightly elevated heart rate of 110, AFib and did receive diltiazem IV bolus, but refused the diltiazem drip and is still refusing that now. The patient was last here at our hospital from 07/01/2018 to 07/04/2018; at that time also treated for AFib with RVR. Former smoker, apparently quit 2 months ago. Hospital Course So patient was admitted to telemetry floor. She ruled out for acute coronary syndrome. Her heart rate stabilized although she did refuse the IV Cardizem medication. She did however take the p.o. flecainide and p.o. Cardizem as recommended by cardiology team who ended up seeing the patient has a consult. She did have some mild bradycardia on the night of November 11, 2018 but she was a symptom medic and by the time of discharge her heart rate was rate controlled and actually showed signs of normal sinus rhythm. She was able to ambulate, tolerated p.o. diet. Patient stayed the night of November 12, 2018 because of some concerns of 1 or 2 episodes of missed beats and some bradycardia. Overnight on November 12 however she had no significant bradycardia no further missed beats. Thus patient will be discharged home today in improved condition. She will follow-up with fur polisher in the clinic in the next few days. See below for full list of discharge medications. Home Meds Active Scripts Diltiazem Hcl* (Cardizem*) 60 Mg Tablet, 60 MG PO Q6, #120 TAB 2 Refills Prov:MEÑO XIE 11/12/18 Reported Medications Flecainide Acetate* (Flecainide Acetate*) 50 Mg Tablet, 150 MG PO BID, TAB 09/29/18 Apixaban* (Eliquis*) 5 Mg Tablet, 5 MG PO BID, TAB 09/29/18 Discontinued Reported Medications Diltiazem Hcl* (Cardizem CD*) 120 Mg Cap.sr.24h, 120 MG PO BID, #30 CAP 09/29/18 Follow-up Plan Please take your medications as prescribed, see your doctor in the clinic in the next 1 week. Primary Care Provider Louise Bear ([facility]) Time spent on discharge: > 30 minutes MEÑO XIE Nov 13, 2018 10:16
[2018-11-13] MEDS: APIXABAN 5 MG TABLET PO SCH (10:20)
[2018-11-13] MEDS: FLECAINIDE 50 MG TAB PO SCH (10:20)
[2018-11-13] MEDS: DILTIAZEM 60 MG TAB PO SCH ×2 (10:20→12:00)
== END 2018-11-13 14:15 | disposition home or self-care (01) | DRG 310 ==
LOC: E/R 07:15 → 6WM 09:06
PROVIDERS: ADMIT Hospitalist; ATTEND Hospitalist
DX: I48.2 Chronic atrial fibrillation (principal); F32.9 Major depressive disorder, single episode, unspecified; D35.1 Benign neoplasm of parathyroid gland; Z79.02 Long term (current) use of antithrombotics/antiplatelets; Z87.891 Personal history of nicotine dependence; F41.9 Anxiety disorder, unspecified
CPT/HCPCS: 36415; 71045; 80048; 80053; 80061; 82550; 82553; 83036; 83735; 83880; 84100; 84439; 84443; 84484; 85025; 85610; 85730; 93005; 94640; 96374; 97161; J7030

== ENCOUNTER 2018-11-17 12:48 | Emergency (ER) | payer MEDICARE, OTHER ==
[~2018-11-17] VITALS: Ht 180.3 cm; Wt 86.0 kg
[~2018-11-17 12:48] MED LIST changes: -DILT120C77 PO; +DILT60TA29 PO
[2018-11-17 12:50] VITALS: Ht 180.3 cm; Wt 86.0 kg
[2018-11-17] MEDS ORDERED: ONDANSETRON 4 MG INJ IV STA (13:03)
[2018-11-17] MEDS ORDERED: SOD CHLORIDE 0.9% 500 ML IV STA (13:03)
--- NOTE | 2018-11-17 14:24 | ERD ---
ER Documentation Chief Complaint Chief Complaint DIZZINESS/WEAKNESS WITH CHEST HEAVINESS TODAY ONLY HPI 73-year-old female with a history of A. fib recently admitted on November 11 for A. fib with RVR presenting with complaints of generalized weakness, chest pressure, and dizziness that started today. She denies any other associated symptoms such as fever, chills, vomiting, diarrhea. She is taking all of her medications as prescribed. She denies any associated shortness of breath. ROS All systems reviewed and are negative except as per history of present illness. Medications Home Meds Active Scripts Diltiazem Hcl* (Cardizem*) 60 Mg Tablet, 60 MG PO Q6, #120 TAB 2 Refills Prov:MEÑO XIE S. 11/12/18 Reported Medications Flecainide Acetate* (Flecainide Acetate*) 50 Mg Tablet, 150 MG PO BID, TAB 09/29/18 Apixaban* (Eliquis*) 5 Mg Tablet, 5 MG PO BID, TAB 09/29/18 Discontinued Reported Medications Diltiazem Hcl* (Cardizem CD*) 120 Mg Cap.sr.24h, 120 MG PO BID, #30 CAP 09/29/18 Allergies Allergies: Coded Allergies: promethazine (Unverified Allergy, Unknown, 09/29/18) acetaminophen (Verified Adverse Reaction, Severe, severe headache, dizziness, 09/29/18) metoprolol (Verified Adverse Reaction, Severe, tingling, dizziness, confusion, 09/29/18) atenolol (Verified Adverse Reaction, Intermediate, headache, dizziness, 09/29/18) PMhx/Soc History of Surgery: Yes (HYSTERECTOMY.) Anesthesia Reaction: No Hx Neurological Disorder: No Hx Respiratory Disorders: No Hx Cardiac Disorders: Yes (A FIB) Hx Psychiatric Problems: Yes (DEPRESSION.) Hx Miscellaneous Medical Probl: Yes (depression, possible parathyroid adenoma, Afib on Eliquis,) Hx Alcohol Use: No Hx Substance Use: No Hx Tobacco Use: Yes Smoking Status: Current every day smoker FmHx Family History: No diabetes Physical Exam Vitals Vital Signs Date Temp Pulse Resp B/P (MAP) Pulse Ox O2 O2 Flow FiO2 Time Delivery Rate 11/17/18 98.6 89 20 144/80 99 Room Air 15:08 (101) 11/17/18 98.5 87 20 198/94 93 12:50 (128) Physical Exam Const: No acute distress Head: Atraumatic Eyes: Normal Conjunctiva ENT: Normal External Ears, Nose and Mouth. Neck: Full range of motion. No meningismus. Resp: Clear to auscultation bilaterally Cardio: Regular rate and rhythm, no murmurs. 2+ distal pulses Abd: Soft, non tender, non distended. Normal bowel sounds Skin: No petechiae or rashes Back: No midline or flank tenderness Ext: No cyanosis, or edema Neur: Awake and alert Psych: Normal Mood and Affect Result Diagram: 11/17/18 1324 11/17/18 1324 Results 24 hrs Laboratory Tests Test 11/17/18 13:24 White Blood Count 7.9 10^3/ul Red Blood Count 5.43 10^6/ul Hemoglobin 15.6 g/dl Hematocrit 47.8 % Mean Corpuscular Volume 88.0 fl Mean Corpuscular Hemoglobin 28.7 pg Mean Corpuscular Hemoglobin Concent 32.6 g/dl Red Cell Distribution Width 13.2 % Platelet Count 328 10^3/UL Mean Platelet Volume 9.7 fl Immature Granulocytes % 0.100 % Neutrophils % 73.5 % Lymphocytes % 19.5 % Monocytes % 5.6 % Eosinophils % 0.9 % Basophils % 0.4 % Nucleated Red Blood Cells % 0.0 /100WBC Immature Granulocytes # 0.010 10^3/ul Neutrophils # 5.8 10^3/ul Lymphocytes # 1.5 10^3/ul Monocytes # 0.4 10^3/ul Eosinophils # 0.1 10^3/ul Basophils # 0.0 10^3/ul Nucleated Red Blood Cells # 0.0 10^3/ul Sodium Level 140 mmol/L Potassium Level 4.1 mmol/L Chloride Level 101 mmol/L Carbon Dioxide Level 25 mmol/L Anion Gap 14 Blood Urea Nitrogen 21 mg/dl Creatinine 0.77 mg/dl Est Glomerular Filtrat Rate mL/min mL/min Glucose Level 105 mg/dl Calcium Level 10.7 mg/dl Total Bilirubin 0.2 mg/dl Direct Bilirubin 0.00 mg/dl Indirect Bilirubin 0.2 mg/dl Aspartate Amino Transf (AST/SGOT) 23 IU/L Alanine Aminotransferase (ALT/SGPT) 28 IU/L Alkaline Phosphatase 124 IU/L Troponin I < 0.012 ng/ml Total Protein 7.7 g/dl Albumin 4.4 g/dl Globulin 3.30 g/dl Albumin/Globulin Ratio 1.33 Lipase 35 U/L Current Medications Medications Dose Sig/Wilma Start Time Status Last (Trade) Ordered Route PRN Stop Time Admin Dose Reason Admin Sodium 500 ml @ Q1H STAT 11/17/18 DC 11/17/18 Chloride 500 mls/hr IV 13:03 13:25 11/17/18 14:02 Ondansetron 4 mg ONCE STAT 11/17/18 DC HCl (Zofran IV 13:03 Inj) 11/17/18 13:05 Procedures/MDM EMERGENT LABS AND DIAGNOSTIC STUDIES: Lab Results above were reviewed and interpreted by me. CBC: no anemia or evidence of infection CMP: No evidence of electrolyte abnormality, renal failure, hypoglycemia, liver failure Lipase: no e/o pancreatitis Troponin within normal limits, not indicative of cardiac ischemia UA: no evidence of infection 12-lead EKG was interpreted by Silvestre Stein MD: Normal Sinus Rhythm Normal axis Normal intervals No acute ST or T wave changes suggestive of acute ischemia or STEMI. Radiology Results as interpreted by Radiology below were reviewed by Francine Stein MD: Chest x-ray shows no acute abnormalities Initial Nursing notes reviewed. Previous Medical Records requested via the Electronic Health Record. EMERGENCY DEPARTMENT COURSE / MEDICAL DECISION MAKING: Patient is presenting with generalized weakness, chest pressure, and dizziness that started acutely today. Vitals were notable for hypertension. The patient states that her blood pressure is usually in the lower range. She is taking her diltiazem 4 times a day as prescribed. Her workup did not show any evidence of acute coronary syndrome or atrial fibrillation. I doubt pulmonary embolism or serious bacterial infection. No evidence of acute heart failure. Patient's blood pressure did improve while she was here without any interventions. As her blood pressure improved, she states that she felt much better. I do not suspect hypertensive emergency at this time. Patient stable for discharge with continued outpatient follow-up. The patient was counseled about the risks of hypertension and urged to pursue outpatient monitoring and therapy within a week with their primary care physician. Departure Diagnosis: Primary Impression: Weakness Additional Impressions: Hypertension Hypertension type: unspecified Qualified Codes: I10 - Essential (primary) hypertension Nausea Condition: Stable Patient Instructions: High Blood Pressure (Hypertension), Nausea, Weakness, Unk Cause Additional Instructions: Return to the ER for any worsening symptoms. Follow-up with your primary care doctor within the next 2 days. JESSICA STEIN MD Nov 17, 2018 14:24
[2018-11-17 15:08] VITALS: BP 144/80; PULSE 89; RESP 20
== END 2018-11-17 15:30 | disposition home or self-care (01) ==
LOC: E/R 12:48
DX: I10 Essential (primary) hypertension (principal); R53.1 Weakness; R11.0 Nausea; F17.210 Nicotine dependence, cigarettes, uncomplicated
CPT/HCPCS: 36415; 71045; 80053; 83690; 84484; 85025; 93005; 99285; J7040